=== PATIENT | male | born 1995 | race Caucasian/White ===

== ENCOUNTER 2025-01-15 18:03 | Emergency (ER) | payer OTHER, SELFPAY ==
[2025-01-15 19:25] LABS: #Basophils 0.04 10x3/uL (0.0-0.2); #Eosinophils 0.09 10x3/uL (0.0-0.5); #Monocytes 0.68 10x3/uL (0.0-1.1); #Neutrophils 4.15 10x3/uL (1.5-8.4); %Basophils 0.5 % (0.0-2.0); %Eosinophils 1.2 % (0.0-6.0); %Lymphocytes 34.3 % (18.0-47.0); %Monocytes 8.9 % (0.0-10.0); %Neutrophils 54.7 % (40.0-75.0); Hematocrit 43.4 % (38.8-50.0); Hemoglobin 14.6 g/dL (13.5-17.5); Mean Corpuscular Hemoglobin 28.1 pg (27.0-33.0); Mean Corpuscular Volume 83.6 fL (81.2-95.1); Platelet Count 218 10x3/uL (150-450); Red Blood Cell (RBC) Count 5.19 10x6/uL (4.32-5.72); White Blood Cell (WBC) Count 7.60 10x3/uL (3.5-10.5)
[2025-01-15 19:43] LABS: ALT (SGPT) 10 U/L (Less than 45); AST (SGOT) 16 U/L (11-34); Albumin 4.4 g/dL (3.1-4.5); Alkaline Phosphatase 72 U/L (40-110); Anion Gap 14 mmol/L (10-20); BUN (Urea Nitrogen) 17 mg/dL (8.9-20.6); Bilirubin, Total 1.0 mg/dL (0.3-1.2); Calc. Creatinine Clearance 0 mL/min (70-130); Calcium 9.2 mg/dL (7.8-10.44); Carbon Dioxide 27 mmol/L (22-29); Chloride 103 mmol/L (98-107); Globulin 2.6 g/dL (2.4-3.5); Glucose 101 mg/dL (70-105); Lipase 10 U/L (8-78); Potassium 3.7 mmol/L (3.5-5.1); Sodium 140 mmol/L (136-145)
[2025-01-15 19:44] LABS: Troponin I Less than 0.010 ng/mL (< 0.028)
[2025-01-15] MEDS ORDERED: Famotidine 20 MG TAB ONE ×2 (20:06→20:09)
[2025-01-15] MEDS ORDERED: Lidocaine Viscous Sol 2% 15 ml UD Cup ONE (20:10)
[2025-01-15] MEDS ORDERED: Milk Of Magnesia 30 ML UDCUP ONE (20:10)
== END 2025-01-15 20:40 | disposition home or self-care (01) ==
LOC: CSHERS 18:03
DX: R07.89 Other chest pain (principal)
CPT/HCPCS: 71045; 80053; 83690; 84443; 84484; 85025; 85379; 93005